=== PATIENT | male | born 2000 | race African-American/Black ===

== ENCOUNTER 2025-01-26 12:32 | Emergency (ER) | payer SELFPAY ==
[~2025-01-26] VITALS: Ht 182.9 cm; Wt 77.3 kg
[2025-01-26 12:48] VITALS: O2SAT 100
[2025-01-26] MEDS ORDERED: IBUP-2029 MT (13:43)
[2025-01-26 14:05] VITALS: BP 115/71; PULSE 59; RESP 18; TEMP 36.8; O2SAT 98
== END 2025-01-26 14:06 | disposition home or self-care (01) ==
LOC: ER 12:32
DX: M79.18 Myalgia, other site (principal); V89.2XXA Person injured in unspecified motor-vehicle accident, traffic, initial encounter; Y93.89 Activity, other specified; Y92.410 Unspecified street and highway as the place of occurrence of the external cause; Y99.8 Other external cause status
CPT/HCPCS: 99282

== ENCOUNTER 2025-02-03 15:58 | Emergency (ER) | payer MEDICAID ==
[~2025-02-03] VITALS: Ht 182.9 cm; Wt 78.0 kg
[~2025-02-03 15:58] MED LIST: IBUP-2029 MT
[2025-02-03 16:15] VITALS: O2SAT 100
[2025-02-03 18:03] VITALS: BP 118/70; PULSE 70; RESP 16; TEMP 36.8; O2SAT 100
== END 2025-02-03 18:05 | disposition home or self-care (01) ==
LOC: ER 15:58
DX: M45.2 Ankylosing spondylitis of cervical region (principal); M54.50 Low back pain, unspecified; Z00.00 Encounter for general adult medical examination without abnormal findings
CPT/HCPCS: 99281